=== PATIENT | male | born 1955 | race Asian ===

== ENCOUNTER 2019-03-06 08:34 | Emergency (ER) | payer OTHER ==
[~2019-03-06] VITALS: Ht 170.2 cm; Wt 70.3 kg
[2019-03-06 08:39] VITALS: Ht 170.2 cm; Wt 70.3 kg
[2019-03-06 09:44] LABS: CARBON DIOXIDE 26.9 mmol/L (21-32); CREATININE SERUM 1.7 mg/dL (0.7-1.3); POTASSIUM SERUM 4.1 mmol/L (3.5-5.1)
[2019-03-06 09:48] LABS: ALBUMIN 3.5 g/dL (3.4-5.0); BILIRUBIN TOTAL 0.72 mg/dL (0.20-1.00); MAGNESIUM 2.3 mg/dL (1.8-2.4); TOTAL PROTEIN, SERUM 7.3 g/dL (6.4-8.2)
[2019-03-06 09:50] LABS: BASOPHIL % 0.7 % (0-2); PLATELET COUNT 187 x10^3mcL (130-400); RED CELL DISTRIBUTION WIDTH 12.6 % (11.5-14.5)
[2019-03-06 09:59] LABS: FREE T4 1.06 ng/dL (0.76-1.46); FREE THYROXINE INDEX 2.3 ug/dL (1.4-4.5); T4(THYROXINE) 6.5 ug/dL (4.7-13.3)
[2019-03-06 10:08] LABS: AMPHETAMINE QUAL UR NONE DETECTED (See below)
[2019-03-06 12:27] LABS: T3 TOTAL 0.85 ng/mL
[2019-03-06 12:57] VITALS: BP 143/82
== END 2019-03-06 12:57 | disposition home or self-care (01) ==
LOC: ED 08:34
PROVIDERS: Emergency Medicine
DX: R00.2 Palpitations (principal); E03.9 Hypothyroidism, unspecified
CPT/HCPCS: 36415; 84439; J7030

== ENCOUNTER 2019-06-07 07:54 | Emergency (ER) | payer OTHER ==
[~2019-06-07] VITALS: Ht 170.2 cm; Wt 68.9 kg
[2019-06-07 08:02] VITALS: Ht 170.2 cm; Wt 68.9 kg
[2019-06-07 10:13] VITALS: BP 114/71
[2019-06-07 10:59] LABS: UA SPECIFIC GRAVITY <=1.005 (1.005-1.035); microscopic required? YES; urine erythrocyte 3+ (NEGATIVE)
== END 2019-06-07 10:13 | disposition home or self-care (01) ==
LOC: ED 07:54
PROVIDERS: Specialist
DX: R31.29 Other microscopic hematuria (principal); E03.9 Hypothyroidism, unspecified; I48.91 Unspecified atrial fibrillation